=== PATIENT | female | born 1975 | race Caucasian/White ===

== ENCOUNTER 2022-02-26 19:52 | Emergency (ER) | payer MEDICAID, OTHER ==
[~2022-02-26] VITALS: Ht 162.6 cm; Wt 72.6 kg
[2022-02-26 19:52] VITALS: BP 145/97
[~2022-02-26 19:52] MED LIST: VICODIN
--- NOTE | 2022-02-26 19:52 | NUR ---
TO BED AMBULATORY, CÉSAR FROM HOME WITH C/O BLEEDING, PAIN ON HER RT UPPER LEG FISTULA 40 MINUTES AGO. BLEEDING CONTROLLED AT THIS TIME.
--- NOTE | 2022-02-26 20:24 | NUR ---
MD PHILLIP AT BEDSIDE
[2022-02-26] MEDS ORDERED: KETOROLAC 60 MG/2 ML VIAL IM ONE (20:30)
--- NOTE | 2022-02-26 20:49 | NUR ---
PATIENT MEDICATED PER ORDERS. TOLERATED WELL
[2022-02-26] MEDS ORDERED: ACET-8386 PO (21:37)
[2022-02-26 21:44] VITALS: BP 145/97
--- NOTE | 2022-02-26 21:44 | NUR ---
Patient discharged with v/s stable. Written and verbal after care instructions given and explained. Patient alert, oriented and verbalized understanding of instructions. Ambulatory with steady gait. All questions addressed prior to discharge. ID band removed. Patient advised to follow up with PMD. Rx of HYDROCODONE/ACETAMINOPHEN given.
--- NOTE | 2022-02-26 22:10 | NUR ---
The patient's care was reviewed and supervised by Kat Sarmiento RN, RN.
== END 2022-02-26 21:44 | disposition home or self-care (01) ==
LOC: MED 19:52
DX: T82.838A Hemorrhage due to vascular prosthetic devices, implants and grafts, initial encounter (principal); I10 Essential (primary) hypertension; F17.200 Nicotine dependence, unspecified, uncomplicated; Z90.49 Acquired absence of other specified parts of digestive tract; Z98.890 Other specified postprocedural states; Z79.899 Other long term (current) drug therapy; Y84.1 Kidney dialysis as the cause of abnormal reaction of the patient, or of later complication, without mention of misadventure at the time of the procedure; Y92.89 Other specified places as the place of occurrence of the external cause
CPT/HCPCS: 96372; 99283; J1885

== ENCOUNTER 2022-08-09 00:35 | Emergency (ER) | payer OTHER ==
[~2022-08-09] VITALS: Ht 162.6 cm; Wt 72.6 kg
[~2022-08-09 00:35] MED LIST changes: +ACET-8905 PO
[2022-08-09 00:38] VITALS: BP 123/98
--- NOTE | 2022-08-09 00:41 | NUR ---
TO LOBBY A/W BED AMBULATORY
--- NOTE | 2022-08-09 02:38 | NUR ---
SEEN AND EXAMINED BY SAIGE
--- NOTE | 2022-08-09 02:55 | NUR ---
PER TANK HOUSE OPERATOR UNABLE TO GET BLOOD. ERMD NOTIFIED.
[2022-08-09] MEDS ORDERED: DICYCLOMINE HCL LIQUID 20 MG, ALUMINUM HYD/MAG/SIMETHICONE 30 ML, LIDOCAINE VISCOUS 2% ... PO ONE ×3 (04:20)
[2022-08-09] MEDS ORDERED: ONDANSETRON 4 MG ODT PO ONE (04:20)
--- NOTE | 2022-08-09 04:50 | NUR ---
PT TO BED #12
[2022-08-09] MEDS ORDERED: DICYCLOMINE HCL LIQUID 10 MG/5 ML UDC ONE (05:07)
[2022-08-09] MEDS ORDERED: ALUMINUM HYD/MAG/SIMETHICONE 30 ML UDC ONE (05:07)
[2022-08-09] MEDS ORDERED: MAG355OR2 PO (05:15)
[2022-08-09] MEDS ORDERED: ONDA-188 SL (05:15)
--- NOTE | 2022-08-09 05:25 | NUR ---
Patient discharged with v/s stable. Written and verbal after care instructions given and explained. Patient alert, oriented and verbalized understanding of instructions. Ambulatory with steady gait. All questions addressed prior to discharge. ID band removed. Patient advised to follow up with PMD. Rx of Mag Hydrox/Al Hydrox/Simeth and Ondansetron given. Opportunity to ask questions provided and answered.
== END 2022-08-09 05:25 | disposition home or self-care (01) ==
LOC: MED 00:35
DX: R11.10 Vomiting, unspecified (principal); R10.13 Epigastric pain; I10 Essential (primary) hypertension; N18.9 Chronic kidney disease, unspecified; Z79.899 Other long term (current) drug therapy
CPT/HCPCS: 99283; Q0162

== ENCOUNTER 2022-12-16 14:12 | Inpatient (IN) | payer OTHER ==
[~2022-12-16] VITALS: Ht 162.6 cm; Wt 75.7 kg
[~2022-12-16 14:12] MED LIST changes: +MAG355OR2 PO; +ONDA-188 SL
[2022-12-16 14:13] VITALS: BP 149/80; PULSE 104; RESP 22; TEMP 98; O2SAT 98
--- NOTE | 2022-12-16 14:21 | NUR ---
PATIENT AMBULATED TO ER BED 01
[2022-12-16 15:50] LABS: BASOPHILS # (AUTO) 0.1 K/uL (0.00-0.22); BASOPHILS % (AUTO) 0.9 % (0.0-2.0); EOSINOPHILS # (AUTO) 0.4 K/uL (0-0.4); EOSINOPHILS % (AUTO) 5.6 % (0.0-4.0); HEMATOCRIT 32.9 % (36-48); HEMOGLOBIN 10.7 g/dL (12.0-16.0); LYMPHOCYTES # (AUTO) 0.6 K/uL (2.5-16.5); LYMPHOCYTES % (AUTO) 7.2 % (20.5-51.1); MEAN CORPUSCULAR HEMOGLOBIN 29 pg (27-31); MEAN CORPUSCULAR HGB CONC 32 g/dL (33-37); MEAN CORPUSCULAR VOLUME 88.4 fL (80-94); MONOCYTES # (AUTO) 0.6 K/uL (0.8-1.0); MONOCYTES % (AUTO) 7.6 % (1.7-9.3); NEUTROPHILS % (AUTO) 78.7 % (42.2-75.2); PLATELET COUNT (AUTO) 192 K/uL (140-450); RED BLOOD CELL COUNT(AUTO) 3.72 MIL/uL (4.20-5.40); RED CELL DISTRIBUTION WIDTH 15.5 % (11.6-13.7); WHITE BLOOD COUNT (AUTO) 7.7 K/uL (4.8-10.8)
[2022-12-16 16:05] LABS: ALBUMIN 3.2 g/dL (3.4-5.0); ANION GAP 21.3 (8-16); CARBON DIOXIDE 18.5 mmol/L (21-32); POTASSIUM 3.8 mmol/L (3.5-5.1); TOTAL BILIRUBIN 0.4 mg/dL (0.0-1.0)
[2022-12-16 16:14] LABS: CREATININE 9.4 mg/dL (0.6-1.3)
--- NOTE | 2022-12-16 16:14 | NUR ---
critical lab values BUN-102 Creatine-9.14. Dr Tafoya made aware of values
[2022-12-16] MEDS ORDERED: VANCOMYCIN 1,000 MG in DEXTROSE 5% 250 ML IV ONE (16:40)
--- NOTE | 2022-12-16 17:28 | NUR ---
PONCHO CALLED LEAN SENSEI FOR UPDATE ON PT FOR ADMIT
[2022-12-16] MEDS ORDERED: VANCOMYCIN 1,000 MG VIAL ONE (17:30)
--- NOTE | 2022-12-16 17:30 | NUR ---
pt medicated per doctors orders.
[2022-12-16 18:04] VITALS: PULSE 154; O2SAT 98
[2022-12-16] MEDS ORDERED: ACETAMINOPHEN 325 MG TAB PO PRN (18:20)
[2022-12-16] MEDS ORDERED: ONDANSETRON 4 MG/2 ML VIAL IVP PRN (18:20)
[2022-12-16] MEDS ORDERED: MAGNESIUM OXIDE 400 MG TAB PO PRN (18:20)
[2022-12-16] MEDS ORDERED: HYDROcodone/APAP 5/325 MG 1 TAB TAB PO PRN (18:20)
[2022-12-16] MEDS ORDERED: VANCOMYCIN PER PHARMACY MC PRN (18:20)
[2022-12-16] MEDS ORDERED: POTASSIUM CHLORIDE 10 MEQ TABER PO PRN (18:20)
--- NOTE | 2022-12-16 19:15 | NUR ---
Pt report given to TERESA GIBBS. Transfer of care at this time.
--- NOTE | 2022-12-16 19:30 | NUR ---
Patient resting in bed, A/Ox4, chest rise and fall symmetrical, no s/s of distress, on monitor.
--- NOTE | 2022-12-16 19:40 | NUR ---
Tegaderm falling off catheter port replaced with new tegaderm while utilizing sterile technique.
--- NOTE | 2022-12-16 20:00 | NUR ---
Patient will be admitted to care of Dr. Lynn. Admited to telemetry. Will go to room 114. Belongings list completed. Report to Telemetry Nurse Bruce GIBBS. Telemetry Nurse Bruce RN verbalized understanding of report, no further questions.
[2022-12-16 20:25] VITALS: PULSE 82; PULSE 86; RESP 18; O2SAT 99
--- NOTE | 2022-12-16 20:25 | NUR ---
RECEIVED PATIENT FROM ER NURSE VIA [facility] FOR CONTINUITY OF CARE. PATIENT IS AOX4, NO COMPLAIN OF PAIN OR SOB AT THIS TIME. PIV INTACT AND PATENT. CALL LIGHT WITHIN EASY REACH
[2022-12-16] MEDS ORDERED: cefTRIAXone 1,000 MG VIAL ONE (21:14)
[2022-12-17] VITALS: BP 145/78; PULSE 82; PULSE 93; RESP 19; TEMP 97.2; O2SAT 99
[2022-12-17 04:00] VITALS: BP 134/69; PULSE 86; PULSE 94; RESP 18; TEMP 97.9; O2SAT 98
--- NOTE | 2022-12-17 05:20 | NUR ---
NOTIFIED MD OF PATIENTS BP OF 183/82. MD ORDERED AMLODIPINE 10MG PO AND HYDRALAZINE 50 MG PO
[2022-12-17] MEDS ORDERED: hydrALAZINE 25 MG TAB PO PRN (05:30)
[2022-12-17] MEDS ORDERED: amLODIPine 5 MG TAB PO SCH (05:40)
[2022-12-17 07:07] LABS: ALBUMIN 3.1 g/dL (3.4-5.0); ANION GAP 22.1 (8-16); CARBON DIOXIDE 16.8 mmol/L (21-32); MAGNESIUM 2.3 mg/dL (1.8-2.4); POTASSIUM 3.9 mmol/L (3.5-5.1); TOTAL BILIRUBIN 0.3 mg/dL (0.0-1.0)
[2022-12-17 07:17] LABS: CREATININE 9.4 mg/dL (0.6-1.3)
--- NOTE | 2022-12-17 07:20 | NUR ---
RECEIVED ENDORSEMENT FROM SOCIAL WORKER [facility] PREVENTION NURSE FOR CONTINUITY OF CARE. PT IS ASLEEP, AWAKEN BY NAME. CALL LIGHT WITHIN REACH.
[2022-12-17 08:00] VITALS: BP 148/77; PULSE 92; PULSE 94; RESP 18; TEMP 96.9; O2SAT 98
[2022-12-17] MEDS: MORPHINE SULFATE 4 MG/ML SYR IVP PRN ×2 (08:11→13:38)
--- NOTE | 2022-12-17 08:54 | NUR ---
PATIENT HAS BEEN SCREENED AND CATEGORIZED LOW NUTRITION RISK. PATIENT WILL BE SEEN WITHIN 7 DAYS OF ADMISSION. 12/23/[address]
--- NOTE | 2022-12-17 11:58 | NUR ---
DC [age]ANN[age] YRS OLD FEMALE HOMELESS PATIENT WAS ADMITTED FROM ER WITH A DX OF INFECTED DIALYSIS CATHETER. PATIENT HAS A HX OF CHF, ESRD ON HEMODIALYSIS TTHS. CXR SHOWED NO EVIDENCE OF ACUTE CARDIOPULMONARY DISEASE. CT PELVIS SHOWED HD CATH VIA LEFT FEMORAL APPROACH WITH EXTENSIVE SUBCUTANEOUS SOFT TISSUE THICKENING AND EDEMA. BLOOD CULTURE PENDING. ADMINISTERED IVF IV ABX VANCOMYCIN AND ROCEPHIN. CONSULTED WITH NEPHRO AND ID. DC PLAN SW TO EVALUATE FOR HOMELESSNESS. CM TO FOLLOW
[2022-12-17 12:00] VITALS: BP 133/75; PULSE 91; PULSE 97; RESP 18; TEMP 96.9; O2SAT 98
--- NOTE | 2022-12-17 14:50 | NUR ---
Home Supervisor HOSPICE HOME HEALTH AIDE was told pt. is homeless. HOSPICE HOME HEALTH AIDE also conducted a Discharge Planning Assessment. HOSPICE HOME HEALTH AIDE introduced self to pt. who would fidget throughout this interview. Pt. stated she has been homeless for about 1 year. Pt. stated her grandmother , mom moved to [place] and pt. stayed [place] She resided in her car, but now car was impounded and she cannot get it out of impound. Pts. friend Wolf in home ([place] will let pt. stay in her home on a temporary situation. Pt. stated she is planning of going to [place]. Her mom may be able to drive down in January to get her. Pt. stated she did not go to dialysis because she does not have her car. She was going on TThSat. HOSPICE HOME HEALTH AIDE gave pt. the contact number and policy number to contact her CM in the future. HOSPICE HOME HEALTH AIDE also stated she will share info with CM so her HD can be set up prior to her discharge. Pt. denied using drugs or having any mental health issues. Pt. stated she gets $1100 in disability. HOSPICE HOME HEALTH AIDE will remain available as needed.
[2022-12-17] MEDS ORDERED: LIDOCAINE MPF 1% 0 ML ONE (15:11)
[2022-12-17] MEDS ORDERED: LIDOCAINE MPF 1% 5 ML ONE (15:18)
[2022-12-17] MEDS ORDERED: VANCOMYCIN 750 MG in DEXTROSE 5% 250 ML IV SCH (16:00)
--- NOTE | 2022-12-17 16:30 | NUR ---
PT LEFT MD NANCY AWARE AND INFORMED CHARGE NURSE.
[2022-12-17] MEDS ORDERED: LIDOCAINE 1% 500 MG/ 50 ML VIAL INJ SCH (16:35)
[2022-12-17] MEDS ORDERED: NEOMYCIN/POLYMYXIN/BACITRACIN OIN 15 GM TUBE TP SCH (16:35)
[2022-12-18] MEDS ORDERED: amLODIPine 5 MG TAB PO SCH (09:00)
== END 2022-12-17 16:30 | disposition left against medical advice (07) | DRG 466 ==
LOC: MED 14:12 → MTU 18:25
PROVIDERS: ADMIT Student in an Organized Health Care Education/Training Program; ATTEND Student in an Organized Health Care Education/Training Program
PROC: 0JPW3XZ Removal of Tunneled Vascular Access Device from Lower Extremity Subcutaneous Tissue and Fascia, Percutaneous Approach (ICD-10-PCS; principal; 2022-12-17)
PROC: 5A1D70Z Performance of Urinary Filtration, Intermittent, Less than 6 Hours Per Day (ICD-10-PCS; 2022-12-17)
DX: T85.71XA Infection and inflammatory reaction due to peritoneal dialysis catheter, initial encounter (principal); I13.2 Hypertensive heart and chronic kidney disease with heart failure and with stage 5 chronic kidney disease, or end stage renal disease; N18.6 End stage renal disease; D63.8 Anemia in other chronic diseases classified elsewhere; E88.09 Other disorders of plasma-protein metabolism, not elsewhere classified; F17.200 Nicotine dependence, unspecified, uncomplicated; Z20.822 Contact with and (suspected) exposure to COVID-19; X58.XXXA Exposure to other specified factors, initial encounter; Z88.8 Allergy status to other drugs, medicaments and biological substances; Z59.00 Homelessness unspecified; Z99.2 Dependence on renal dialysis; Z91.158 Patient's noncompliance with renal dialysis for other reason
CPT/HCPCS: 36415; 71045; 72192; 80053; 80202; 82803; 83605; 83735; 83880; 84484; 85025; 87040; 87081; 93005; 96374; 99285; J0696; J1644; J2001; J2270; J3370; J7060